=== PATIENT | male | born 2000 | race Asian ===

== ENCOUNTER 2023-01-08 16:00 | Emergency (ER) | payer OTHER, SELFPAY ==
[2023-01-08 16:13] VITALS: BP 135/79; PULSE 62; RESP 16; TEMP 36.7; O2SAT 100; BMI 25.9
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
== END 2023-01-08 17:04 | disposition home or self-care (01) ==
PROVIDERS: Emergency Provider Physician Assistant
DX: S06.0X0A Concussion without loss of consciousness, initial encounter (principal); V47.0XXA Car driver injured in collision with fixed or stationary object in nontraffic accident, initial encounter; Y92.410 Unspecified street and highway as the place of occurrence of the external cause
CPT/HCPCS: 99281; 99282